=== PATIENT | male | born 1975 ===

== ENCOUNTER 2022-05-10 18:15 | Emergency (ER) | payer MEDICARE, MEDICAID ==
[2022-05-10] MEDS ORDERED: Sodium Chloride 0.9% 2.5 ML Syringe FLUSH PRN (18:24)
[2022-05-10] MEDS ORDERED: Sodium Chloride 0.9% 10 ML Syringe FLUSH PRN (18:24)
[2022-05-10 18:27] VITALS: BP 156/100; PULSE 91
[2022-05-10] MEDS ORDERED: LORazepam 2 MG/ML SDV IVPUSH STA (18:36)
[2022-05-10] MEDS ORDERED: Alum Hydro/Mag Hydro/Simeth XS 15 ML, Lidocaine 2% 5 ML PO STA ×2 (18:36)
[2022-05-10 19:09] LABS: CARBON DIOXIDE,CO2 28.8 mmol/L (21.0-32.0); POTASSIUM,K 4.2 mmol/L (3.5-5.1)
[2022-05-10 19:09] LABS: CORONAVIRUS COVID-19 NAA NEGATIVE (NEGATIVE); INFLUENZA A NAA NEGATIVE (NEGATIVE); INFLUENZA B NAA NEGATIVE (NEGATIVE)
== END 2022-05-10 20:33 | disposition home or self-care (01) ==
LOC: MW.ED 18:15
DX: K21.9 Gastro-esophageal reflux disease without esophagitis (principal); Z20.822 Contact with and (suspected) exposure to COVID-19
CPT/HCPCS: 0240U; 36415; 71045; 80053; 80305; 81003; 83735; 83880; 84484; 85025; 93005; 96374; 99285; A9270; J2060; J3490